=== PATIENT | female | born 1995 | race Caucasian/White ===

== ENCOUNTER 2020-02-07 17:24 | Emergency (ER) | payer OTHER, SELFPAY ==
[~2020-02-07] VITALS: Ht 154.9 cm; Wt 85.7 kg
[2020-02-07 17:26] VITALS: BP 113/58; Ht 154.9 cm; Wt 85.7 kg
== END 2020-02-07 19:24 | disposition home or self-care (01) ==
LOC: ED 17:24
DX: B34.9 Viral infection, unspecified (principal); Z20.828 Contact with and (suspected) exposure to other viral communicable diseases
CPT/HCPCS: U0003